=== PATIENT | female | born 1955 | race Caucasian/White ===

== ENCOUNTER 2017-06-25 10:13 | Emergency (ER) | payer OTHER ==
[~2017-06-25] VITALS: Ht 157.5 cm; Wt 69.8 kg
[2017-06-25] MEDS ORDERED: IBUPROFEN400 MG PO (11:39)
[2017-06-25] MEDS ORDERED: FLEXERIL10 MG PO (11:39)
[2017-06-25] MEDS ORDERED: PERCOCET 5/31 TABLET PO (11:39)
[2017-06-25 11:54] VITALS: BP 109/77
== END 2017-06-25 12:01 | disposition home or self-care (01) ==
LOC: EME 10:13
DX: S39.012A Strain of muscle, fascia and tendon of lower back, initial encounter (principal); M54.31 Sciatica, right side; I10 Essential (primary) hypertension; Z87.891 Personal history of nicotine dependence
CPT/HCPCS: 99281; 99284

== ENCOUNTER 2017-07-01 04:12 | Emergency (ER) | payer OTHER ==
[~2017-07-01] VITALS: Ht 157.5 cm; Wt 70.9 kg
[~2017-07-01 04:12] MED LIST: FLEXERIL10 MG PO; IBUPROFEN400 MG PO; PERCOCET 5/31 TABLET PO
[2017-07-01 04:44] LABS: HEMATOCRIT 41.5 % (36.0-46.0); HEMOGLOBIN 14.7 G/DL (11.9-15.5); MCH 30.9 PG (29.0-34.0); MCHC 35.4 G/DL (30.0-36.0); MCV 87.4 FL (83-99); PLATELET COUNT 322 K/uL (156-360); RBC DIS.WIDTH-SD 38.7 % (39-53); RED BLOOD COUNT 4.75 M/uL (3.80-5.20); WHITE BLOOD COUNT 11.2 K/uL (4.1-10.2)
[2017-07-01 04:52] LABS: ALBUMIN 4.1 g/dL (3.2-4.8); CHLORIDE 106 mEq/L (99-109); POTASSIUM 3.8 mEq/L (3.7-5.4); SODIUM 141 mEq/L (136-147)
[2017-07-01 04:54] LABS: GLUCOSE 136 mg/dL (70-99)
[2017-07-01 04:55] LABS: TOTAL PROTEIN 7.2 g/dL (6.4-8.3)
[2017-07-01 04:56] LABS: TOTAL BILIRUBIN 0.5 mg/dL (0.0-1.0)
[2017-07-01 04:58] LABS: ALKALINE PHOSPHATASE 54 IU/L (3-129); CREATININE 0.9 mg/dL (0.6-1.3); GFR ESTIMATE (CALCULATED) > 59 mL/min/
[2017-07-01 04:59] LABS: UREA NITROGEN (BUN) 14 mg/dL (9-23)
[2017-07-01 05:00] LABS: AST (GOT) 23 IU/L (2-34)
[2017-07-01 05:01] LABS: ALT (GPT) 27 IU/L (3-49)
[2017-07-01 05:11] LABS: LIPASE 34 U/L (1.0-51.0)
[2017-07-01 05:21] LABS: TROP-I INTERPRETATION NEGATIVE; TROPONIN-I < 0.01 ng/mL (0.0-0.30)
[2017-07-01 10:08] LABS: APPEARANCE CLOUDY ((CLEAR)); BILIRUBIN NEGATIVE; BLOOD NEGATIVE; GLUCOSE (STRIP) NEGATIVE; KETONES NEGATIVE; LEUKOCYTES NEGATIVE; NITRITE NEGATIVE; PROTEIN (STRIP) 30; SPECIFIC GRAVITY 1.024 (1.000-1.030); UROBILINOGEN 0.2 MG/DL (0.2-1.0)
[2017-07-01 10:09] LABS: COLOR YELLOW ((YELLOW))
[2017-07-01 10:27] LABS: RED BLOOD CELLS NONE SEEN /HPF (0-5); WHITE BLOOD CELLS NONE SEEN /HPF (0-5)
[2017-07-01] MEDS ORDERED: ZANTAC150 MG PO (10:27)
[2017-07-01 10:28] LABS: AMORPHOUS PHOSPHATE CRYSTALS 1+; BACTERIA RARE /HPF; EPITHELIAL CELLS RARE /HPF; MUCUS NONE SEEN /LPF; UCUL ADDED? NO
[2017-07-01 11:21] VITALS: BP 127/71
== END 2017-07-01 11:24 | disposition home or self-care (01) ==
LOC: EME 04:12
PROVIDERS: Emergency Medicine
DX: K80.20 Calculus of gallbladder without cholecystitis without obstruction (principal); I10 Essential (primary) hypertension; Z90.710 Acquired absence of both cervix and uterus; Z87.891 Personal history of nicotine dependence
CPT/HCPCS: 74177; 76705; 80053; 81003; 83690; 84484; 85027; 93005; 99281; 99285; J2270; J2405

== ENCOUNTER → 2017-07-18 | Outpatient (CLI) | payer OTHER ==
[~2017-07-18] MED LIST changes: +BENADRYL25 MG PO; +CLARITIN10 MG PO; +FLOVENT 11120 INHALA IH; +MICROZIDE12.5 M1 PO; +OXYCODONE HCL5 MG PO; +PROAIR RESPICL90 MCG IH; +SINGULAIR10 MG PO; +ZANTAC150 MG PO; +ZESTRIL5 MG PO
== END | disposition home or self-care (01) ==
LOC: CDC 10:34
DX: Z01.810 Encounter for preprocedural cardiovascular examination (principal); K80.20 Calculus of gallbladder without cholecystitis without obstruction; Z90.710 Acquired absence of both cervix and uterus
CPT/HCPCS: 93000

== ENCOUNTER 2017-07-21 07:46 | Day surgery (SDC) | payer OTHER ==
[~2017-07-21] VITALS: Ht 157.5 cm; Wt 69.4 kg
[~2017-07-21 07:46] MED LIST changes: -OXYCODONE HCL5 MG PO
[2017-07-21] MEDS ORDERED: PERCOCET 5/31 TABLET PO (08:23)
[2017-07-21 08:25] VITALS: BP 127/60
[2017-07-21] MEDS ORDERED: OXYCODONE HCL5 MG PO (11:47)
[2017-07-21 14:17] VITALS: BP 116/63
[2017-07-21 15:34] VITALS: BP 121/63
== END 2017-07-21 15:40 | disposition home or self-care (01) ==
LOC: SDC 07:46
PROC: 0FT44ZZ Resection of Gallbladder, Percutaneous Endoscopic Approach (ICD-10-PCS; principal; 2017-07-21)
DX: K80.12 Calculus of gallbladder with acute and chronic cholecystitis without obstruction (principal); Z90.710 Acquired absence of both cervix and uterus; I10 Essential (primary) hypertension; J42 Unspecified chronic bronchitis; E66.9 Obesity, unspecified; Z68.27 Body mass index [BMI] 27.0-27.9, adult; Z90.722 Acquired absence of ovaries, bilateral; Z87.891 Personal history of nicotine dependence; Z80.7 Family history of other malignant neoplasms of lymphoid, hematopoietic and related tissues; Z82.61 Family history of arthritis; Z82.49 Family history of ischemic heart disease and other diseases of the circulatory system; Z80.8 Family history of malignant neoplasm of other organs or systems; Z80.3 Family history of malignant neoplasm of breast
CPT/HCPCS: 88304; J0131; J1170; J2001; J2250; J2405; J2795; J3010; J3475; S0074